=== PATIENT | female | born 1995 | race Caucasian/White ===

== ENCOUNTER 2025-02-24 06:13 | Day surgery (SDC) | payer OTHER, SELFPAY ==
[2025-02-24 09:29] VITALS: BMI 21.6
[2025-02-24 09:30] VITALS: BP 100/64
[2025-02-24 12:15] VITALS: BP 108/66
[2025-02-24 12:30] VITALS: BP 107/65
[2025-02-24 12:45] VITALS: BP 110/73
== END 2025-02-24 13:15 | disposition home or self-care (01) ==
LOC: SDS 06:13
PROVIDERS: ATTENDING PHYSICIAN Internal Medicine Gastroenterology
DX: K29.80 Duodenitis without bleeding (principal); K86.2 Cyst of pancreas; D13.6 Benign neoplasm of pancreas; K31.89 Other diseases of stomach and duodenum; R93.5 Abnormal findings on diagnostic imaging of other abdominal regions, including retroperitoneum; R10.13 Epigastric pain
CPT/HCPCS: 43242; 43239; 88173; 88305; 88341; 88342

== ENCOUNTER → 2025-04-09 16:14 | Outpatient (REF) | payer OTHER, SELFPAY | LOC: RAD 16:14 | PROVIDERS: ATTENDING PHYSICIAN Obstetrics & Gynecology; FAMILY PHYSICIAN Nurse Practitioner Family | DX: N94.6 Dysmenorrhea, unspecified (principal) | CPT/HCPCS: 76830; 76856 ==